=== PATIENT | male | born 1940 | race Hispanic/Latino ===

== ENCOUNTER 2020-08-28 14:33 | Inpatient (IN) | payer OTHER ==
[~2020-08-28 14:33] MED LIST: Calcium Chloride 1 GM/10 ML Abboject SYRINGE ONE; Iopamidol 370 76% 50 ML VIAL FS ONE; Iopamidol-370 76% 500 ML 1 ML ONE; Rocuronium Bromide 10 MG/ML (10ML VIAL) ONE
[2020-08-28] MEDS ORDERED: Midazolam HCl 2 mg/2 ml Vial ONE ×2 (14:56→15:35)
[2020-08-28] MEDS ORDERED: Fentanyl 100 MCG/2 ML VIAL ONE ×4 (14:56→18:04)
[2020-08-28 15:00] LABS: #Eosinphils 0.2 thou/uL (0.0-0.7); #Lymphocytes 2.6 thou/uL (1.20-3.40); #Monocytes 0.9 thou/uL (0.11-0.59); #Neutrophils 16.2 thou/uL (1.40-6.50); %Basophils 0.2 % (0.0-1.0); %Monocytes 4.5 % (0.0-10.0); %Neutrophils 81.3 % (42.0-75.0); Hemoglobin 10.7 g/dL (14.0-18.0); Mean Corpuscular HGB CONC 35.3 g/dL (32.0-36.0); Mean Corpuscular Volume 93.3 fL (78.0-98.0); Mean Platelet Volume 6.6 fL (7.4-10.4); Platelet Count 197 thou/uL (130-400); RBC Distribution Width 12.2 % (11.5-14.5); Red Blood Cell (RBC) Count 3.24 mill/uL (4.70-6.10); White Blood Cell (WBC) Count 19.9 thou/uL (4.8-10.8)
[2020-08-28 15:15] LABS: ALT (SGPT) 60 U/L (8-55); AST (SGOT) 74 U/L (5-34); Alkaline Phosphatase 40 U/L (40-110); Anion Gap 15 mmol/L (10-20); BUN (Urea Nitrogen) 26 mg/dL (8.4-25.7); Bilirubin, Total 0.3 mg/dL (0.2-1.2); Calc. Creatinine Clearance 0 mL/min (70-130); Calcium 7.2 mg/dL (7.8-10.44); Carbon Dioxide 18 mmol/L (23-31); Chloride 105 mmol/L (98-107); Estimated GFR-MDRD 40; Globulin 2.2 g/dL (2.4-3.5); Glucose 268 mg/dL (83-110); Potassium 4.3 mmol/L (3.5-5.1); Protein, Total 5.2 g/dL (5.8-8.1); Sodium 134 mmol/L (136-145)
[2020-08-28 15:20] LABS: INR-International Normal Ratio 1.3; Prothrombin Time 16.3 sec (12.0-14.7)
--- NOTE | 2020-08-28 15:20 | RAD ---
AP view of the pelvis INDICATION: History of fall 20 to 30 ft. onto a concrete; level 1 trauma COMPARISON: None. FINDINGS: Bones: There is a mildly displaced left anterior column acetabular fracture. There is a comminuted fr actures involving the left inferior pubic ramus. There are mildly displaced right obturator ring fractures. There is suspicion for a left zone 1 sacral ala fracture. Both proximal femurs appear inta ct. Hips: Mild osteoarthrosis of both hips SI joints and symphysis pubis: Normal appearing. Intrapelvic contents: Small phleboliths IMPRESSION: 1. Left anterior column acetabular fracture. 2. Comminuted left inferior pubic ramus fracture. 3. Mildly displaced right superior pubic and right inferior pubic ramus fractures 4. Suspected left zone 1 sacral ala fracture.
--- NOTE | 2020-08-28 15:23 | CT ---
Head CT without contrast 08/28/2020: Comparison: None HISTORY: Fall, trauma, pain TECHNIQUE: Axial CT imaging at 5 mm intervals from vertex through skull base without contrast FINDINGS: The imaged paranasal sinuses and mastoid air cells appear well-aerated. No displaced calvar ial fracture. No intracranial hemorrhage, midline shift, or mass effect. No ventricular enlargement. There is mild scalp swelling laterally near the vertex on the right with probable mild s upraorbital and periorbital right-sided soft tissue swelling. IMPRESSION: Soft tissue swelling with no intracranial hemorrhage or displaced calvarial fracture. Results called to Dr. Pruitt at 3:15 PM 08/28/2020
--- NOTE | 2020-08-28 15:23 | CT ---
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 FINDINGS: Spinal alignment: No acute malalignment. Craniocervical junction: Within normal limits. Fracture: None. Vertebral body heights: Maintained. Prevertebral soft tissues:Normal appearing. Cervical spine degenerative change: There is multilevel moderate disc degenerative disease. There is ankylosis of the left facet complexes at C4-5. There is very mild anterior translation of C3 on C4 which is likely degenerative. Lung apices: Clear. IMPRESSION: No acute osseous abnormality. [id number] cervical spondylosis.
--- NOTE | 2020-08-28 15:25 | RAD ---
Portable frontal chest radiograph: 08/28/2020 COMPARISON: 08/28/2020 HISTORY: Reevaluate endotracheal tube FINDINGS: The endotracheal tube has been advanced, projecting over the tracheal air column approximat yue 4 cm proximal to the andrea. There is a right vascular catheter with distal tip overlying the region of the proximal right atrium. A subtle fracture is seen involving the medial aspect of the lef t clavicle. There is questionable soft tissue gas in the axillary region on the left for which CT is advised. No focal consolidation or alveolar edema. IMPRESSION: Lines and tubes as detailed above. Soft tissue gas in the left axillary region. Chest CT advised.
--- NOTE | 2020-08-28 15:30 | RAD ---
AP CHEST: 08/28/20 HISTORY: Fall with injury. Supine and portable exam performed on backboard. Lungs appear aerated and clear. No evidence of pneumothorax. A central line is in place overlying the SVC. Lungs appear clear. Heart and mediastinum unremarkable. The bony thorax appears intact. IMPRESSION: No acute finding. POS: AGW
[2020-08-28] MEDS ORDERED: Boostrix 0.5 ML (Tdap) VIAL ONE (15:35)
[2020-08-28 15:38] LABS: Lactic Acid 4.4 mmol/L (0.5-2.2)
[2020-08-28] MEDS ORDERED: Propofol 1,000 MG/100 ML VIAL IV ONE ×2 (15:43→18:06)
[2020-08-28] MEDS ORDERED: fentaNYL Citrate/PF 2,000 MCG in Sodium Chloride 0.9% 60 ML IV SCH ×2 (15:45→17:15)
--- NOTE | 2020-08-28 15:48 | RAD ---
3 views of the left ankle: 08/28/2020 COMPARISON: None available HISTORY: Injury, trauma, pain FINDINGS: There is soft tissue swelling overlying the lateral malleolus. There is enthesophyte format ion at the origin of the plantar aponeurosis. The talar dome and ankle mortise appear intact with no displaced fracture or evidence of dislocation. IMPRESSION: Lateral soft tissue swelling with no displaced fracture or dislocation seen.
[2020-08-28 15:58] LABS: Actual Bicarbonate (HCO3a) 17.3 mEq/L (22-28); Analyzer IN Cardio ER; Base Excess (BEa) -5.5 mEq/L (-2.0 to +3.0); Calcium, Ionized (arterial) 1.27 mmol/L (1.12-1.30); Carboxyhemoglobin (COHb) 0.3 gm% (0.0-3.0); Hemoglobin (Hb) 10.4 g/dL (14.0-18.0); O2 Tension (PaO2), arterial 267.3 mmHg (> 60.0); Potassium - ABG Lab 3.37 mmol/L (3.70-5.30); pH, Arterial 7.45 (7.35-7.45)
[2020-08-28 16:00] LABS: CO2 Tension 25.6 mmHg (35.0-45.0); Puncture Site A-LINE
--- NOTE | 2020-08-28 16:04 | CT ---
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 FINDINGS: CHEST: Lungs:There is bibasilar airspace consolidation suspicious for aspiration Heart and great vessels:No acute traumatic injury seen. Pleural space: There are few small locules of pneumothorax involving the anterior aspect of the left lung apex. Small amount of hemorrhage involves the left lower hemithorax. Additional findings: Patient is intubated with gastric catheter placement. Gastric catheter is proje cting to the proximal gastric body. There is a right subclavian central venous catheter tip projecting to the cavoatrial junction. There is a right eye O catheter in the right proximal humerus. ABDOMEN: Liver:Normal appearing. Spleen:There is a grade 2 laceration involving the medial inferior pole spleen measuring 1.8 cm. Ther e is a 9 mm contusion involving the medial spleen on image 64 series 2. Pancreas:Normal appearing. Adrenal Glands:There is a 2.4 cm nodule involving the left adrenal gland which is nonspecific and may reflect a small adrenal hematoma or adenoma. Right adrenal gland is normal-appearing. Kidneys:There is a partially ruptured superior pole left renal cyst with surrounding intraluminal hem orrhage and perinephric hemorrhage measuring 4.1 cm. There are multiple simple right renal cysts. Aorta:There are moderate vascular calcifications seen involving the visualized vasculature. Additional findings: No free fluid or free air. PELVIS: Bowel:Normal appearing. Bladder:There is a Nelson catheter within the decompressed bladder. There is extensive paravesicular a nd intrapelvic hematomas. Reproductive structures:There is prostate enlargement. Rectum and perirectal soft tissues:Normal appearing. Additional findings: There is a focus of active extravasation involving the left presacral region, n ear the left sacrotuberous attachment. There is suspicion for a sacrotuberous ligament avulsion injury on image 126 of series 2. OSSEOUS STRUCTURES: There is a nondisplaced left medial shaft clavicular fracture. There is a heavily comminuted open left proximal humeral fracture. There are segmental fractures involving the left sixth, seventh and eighth ribs. There are is a mildly displaced left anterolateral fifth rib fracture. There are mildly displaced pos terior left ninth, 10th and 11th rib fractures. There is a mildly displaced left L1 and left L4 transverse process fracture. There is a transverse type left acetabular fracture with an associated anterior wall component. There is a mildly displaced left pubic body fracture and a comminuted left inferior pubic ramus fract ure. There are mildly displaced right obturator ring fractures. There is a mildly displaced right zone 1 sacral ala fracture. There is a nondisplaced right posterior iliac bone fracture. There is a left sacral tuberous ligament avulsion injury involving the lateral aspect of the left low er lateral sacrum on image 126 of series 2 with adjacent area of active extravasation. There is scattered degenerative and osteoarthritic changes. THORACIC AND LUMBAR SPINE: No acute fracture subluxation is evident. There is a Schmorl's node involving the superior aspect of L1. There is grade 1 anterolisthesis of L3 on L4 and L4-L5 which is likely degenerative in nature. IMPRESSION: 1. Small left hemopneumothorax with flail chest involving the left chest wall ribs sixth through 8. T here are additional left fifth, ninth, 10th, 11th rib fractures. Left L1 and L4 transverse process fractures. 2. Bibasilar aspiration pneumonitis. 3. Grade 2 splenic laceration and grade 1 splenic hematoma 4. Suspicion for a left adrenal hematoma or adenoma. Follow-up imaging is recommended. 5. Partial cyst rupture with some intraluminal and surrounding perinephric hemorrhage involving the s uperior pole left kidney. 6. Transverse type left acetabular fracture with associated mildly displaced anterior wall component. 7. Right obturator ring fractures with left pubic body and comminuted left inferior pubic ramus fract ure. 8. Right zone 1 sacral ala fracture with fracture extension through the right SI joint with a nondisp laced right posterior iliac bone fracture. 9. Left sacrotuberous ligament avulsion injury with a focus of likely venous active extravasation jessica r the avulsion site. 10. Comminuted open left proximal humerus fracture. 11. Nondisplaced medial left clavicular shaft fracture. 12. Findings concerning the CT cervical spine, CT, chest, abdomen and pelvis with thoracolumbar CT re constructions in addition to the follow-up CT cystogram were called to Dr. Shah at 3:45 PM on August 28, 2020.
--- NOTE | 2020-08-28 16:06 | RAD ---
LEFT HUMERUS 2 VIEWS: Date: 08/28/2020 HISTORY: Trauma. FINDINGS: There is a displaced, mildly comminuted fracture involving the proximal humerus. This involves the ne ck and head of the humerus. There is displacement of the humeral head. AC joint is normally aligned. Scapula appears intact. There is a displaced fracture at the elbow which appears to involve the olecranon. Dedicated views of the elbow are recommended. IMPRESSION: 1. Comminuted, displaced fracture proximal humerus with displacement of the humeral head. 2. Fracture at the elbow. There appears to be a displaced fracture of the olecranon. POS: RICK
--- NOTE | 2020-08-28 16:09 | CT ---
EXAM: CT Pelvis WO Con DATE: 08/28/2020 3:24 PM INDICATION: Level 1 trauma with multiple pelvic fracture and concern for bladder injury COMPARISON: CT of the chest, abdomen and pelvis with contrast performed earlier on 08/28/2020 FINDIN cc of contrast was administered in retrograde fashion through the patient's Nelson dwaine ter and repeat CT images were obtained of the lower abdomen and pelvis. There is a linear region of extraluminal extravasation involving the right posterior lateral aspect o f the bladder base consistent with a intraperitoneal bladder rupture. There is moderate enlargement of the prostate gland. There is an intraluminal Nelson catheter with intraluminal hemorrhage seen with in the bladder. Small intraluminal focus of nondependent gas is present within the bladder dome. The area of active venous extravasation seen along the left lateral margin of the lower sacrum likely related to a sacrotuberous ligament avulsion injury demonstrates some interval dispersement of the extravasated contrast. Some residual contrast extravasation remains. This remains suspicious for acti ve venous extravasation. There is some contract dissection into the right femoral open space into the right inguinal region. There is some dissection of contrast into the right inguinal musculature. There is a moderate intrapelvic hemorrhage again seen. The pelvic fractures are better detailed on the previous CT evaluation. IMPRESSION: 1. Intraperitoneal bladder rupture through the right posterior lateral aspect of the bladder base.
[2020-08-28] MEDS ORDERED: Lidocaine 1% (PF) 30 ML VIAL ONE (16:19)
[2020-08-28 16:30] LABS: Magnesium 1.5 mg/dL (1.6-2.6); Phosphorus 4.4 mg/dL (2.3-4.7)
[2020-08-28] MEDS ORDERED: Dextrose 50% Abboject 50 ML SYRINGE SLOW IVP PRN (16:42)
[2020-08-28] MEDS ORDERED: HumaLOG 300 UNITS/3 ML VIAL SC PRN (16:42)
[2020-08-28] MEDS ORDERED: Dextrose 5% in Water 1,000 ML IV PRN (16:42)
[2020-08-28] MEDS ORDERED: Ondansetron PF 4 MG/2 ML Vial IVP PRN (16:42)
[2020-08-28] MEDS ORDERED: Sodium Chloride 0.9% 1,000 ML IV SCH (16:45)
[2020-08-28] MEDS ORDERED: Rib Fracture Protocol IV SCH (16:45)
[2020-08-28 16:48] LABS: CKMB 10.4 ng/mL (0-6.6)
[2020-08-28] MEDS ORDERED: Ventilator Sedation Protocol 1 EACH FS ONE (16:56)
[2020-08-28 17:07] LABS: Hemoglobin 11.3 g/dL (14.0-18.0)
[2020-08-28] MEDS ORDERED: DISCONTINUE PREVIOUS NARCOTIC PAIN MEDICATIONS AND BENZODIAZEPINES FS SCH (17:15)
[2020-08-28] MEDS ORDERED: Fentanyl BOLUS 250 ML IVPB PRN (17:15)
[2020-08-28] MEDS ORDERED: Morphine 2 MG/ML VIAL SLOW IVP PRN (17:15)
[2020-08-28] MEDS ORDERED: Propofol 1,000 MG/100 ML VIAL IV PRN (17:15)
[2020-08-28] MEDS ORDERED: Propofol BOLUS 1,000 MG/100 ML VIAL IV PRN (17:15)
[2020-08-28] MEDS ORDERED: Magnesium Sulfate 4 GM in Sodium Chloride 0.9% 250 ML 250 ML IVPB SCH (17:15)
[2020-08-28] MEDS ORDERED: Lorazepam 2 MG/ML VIAL SLOW IVP PRN (17:15)
[2020-08-28] MEDS ORDERED: Neomycin-Polymyxin 1 ML AMP ONE (17:36)
[2020-08-28 18:35] LABS: Lactic Acid 3.5 mmol/L (0.5-2.2)
[2020-08-28] MEDS ORDERED: Calcium Chloride 1 GM/10 ML Abboject SYRINGE ONE (18:36)
[2020-08-28 18:39] LABS: INR-International Normal Ratio 1.2; PTT 33.2 sec (22.9-36.1); Prothrombin Time 15.8 sec (12.0-14.7)
[2020-08-28 18:40] LABS: #Eosinphils 0.1 thou/uL (0.0-0.7); #Lymphocytes 1.5 thou/uL (1.20-3.40); #Monocytes 0.7 thou/uL (0.11-0.59); #Neutrophils 9.2 thou/uL (1.40-6.50); %Basophils 0.1 % (0.0-1.0); %Eosinophils 0.6 % (0.0-10.0); %Monocytes 5.8 % (0.0-10.0); %Neutrophils 80.6 % (42.0-75.0); Hemoglobin 10.4 g/dL (14.0-18.0); Mean Corpuscular HGB CONC 35.2 g/dL (32.0-36.0); Mean Corpuscular Hemoglobin 31.5 pg (27.0-31.0); Mean Corpuscular Volume 89.5 fL (78.0-98.0); Mean Platelet Volume 7.1 fL (7.4-10.4); Platelet Count 131 thou/uL (130-400); RBC Distribution Width 14.1 % (11.5-14.5); Red Blood Cell (RBC) Count 3.31 mill/uL (4.70-6.10); White Blood Cell (WBC) Count 11.4 thou/uL (4.8-10.8)
[2020-08-28] MEDS ORDERED: Hydrocortisone Sod Succ/PF 100 mg/2 ml Vial ONE (18:41)
[2020-08-28 19:09] LABS: Actual Bicarbonate (HCO3a) 18.1 mEq/L (22-28); Analyzer IN Cardio ER; Base Excess (BEa) -6.8 mEq/L (-2.0 to +3.0); CO2 Tension 33.9 mmHg (35.0-45.0); Calcium, Ionized (arterial) 1.38 mmol/L (1.12-1.30); Carboxyhemoglobin (COHb) 0.2 gm% (0.0-3.0); Hemoglobin (Hb) 10.2 g/dL (14.0-18.0); O2 Tension (PaO2), arterial 247.6 mmHg (> 60.0); Potassium - ABG Lab 3.58 mmol/L (3.70-5.30); pH, Arterial 7.35 (7.35-7.45)
[2020-08-28 19:10] LABS: Puncture Site ART LINE
[2020-08-28 19:15] LABS: ALV-art Gradient 423.025 mmHg (0-20)
[2020-08-28 19:39] LABS: SARS-CoV-2 NAA Rapid Test Not Detected (NotDetected)
[2020-08-28] MEDS ORDERED: Famotidine/PF 20 mg/2ml Vial SLOW IVP SCH (21:00)
--- NOTE | 2020-08-28 23:20 | CON ---
DATE OF CONSULTATION: 08/28/2020 HISTORY OF PRESENT ILLNESS: I was called to the emergency room by Dr. Shah for patient who had a fall from a height. He has multiple long-bone and pelvis fractures. He was hypotensive and is in the process of the massive transfusion protocol. He has received numerous units of packed red blood cells, FFP, platelets, and cryoprecipitate. On his CT angio of his abdomen and pelvis, he has been found to have bleeding into his left pelvis. I have been asked to see him for embolization. PAST MEDICAL HISTORY: Unknown. PAST SURGICAL HISTORY: Unknown. CURRENT MEDICATIONS: Unknown. ALLERGIES: UNKNOWN. PHYSICAL EXAMINATION: VITAL SIGNS: His heart rate was 70 and regular. Blood pressure was 90/60. He is being cared for by the Anesthesia and ER team currently. ASSESSMENT/PLAN: Pelvic bleed for embolization. Job ID: [id number]
--- NOTE | 2020-08-28 23:24 | OP ---
DATE OF PROCEDURE: 08/28/2020 PREOPERATIVE DIAGNOSIS: Pelvic bleed post fall. POSTOPERATIVE DIAGNOSIS: Pelvic bleed post fall. PROCEDURES PERFORMED: 1. Ultrasound-guided right femoral artery access. 2. Abdominal aortogram. 3. Left internal iliac artery angiogram. 4. Left internal iliac artery embolization with [employer] micro coils-#1, 6 x 100; #2, 6 x 100; #3, 6 x 200 placed in the secondary pelvic branches on the left. TOTAL FLUORO TIME: 3.7 minutes. TOTAL CONTRAST: 18 mL. DESCRIPTION OF PROCEDURE: The patient was urgently brought to the supervisor laboratory from the emergency department. The groins were prepped and draped in usual sterile fashion. The patient was under general anesthesia. Using ultrasound guidance, the right common femoral artery was accessed with a micropuncture needle and wire. The micropuncture sheath was then upsized to a 5-Portuguese sheath. Contra catheter was passed into the abdominal aorta. Hand-injected aortogram was performed, delineating the aortic and iliac bifurcations. Contra catheter was guided over the aortic bifurcation and into the internal iliac artery. Hand-injected arteriogram was performed with the tip of the catheter in secondary iliac artery branch. There were two separate areas of bleeding, one on the prostate and one in the left SI joint. The secondary branch feeding the SI joint was accessed. A Renegade catheter was passed down into the artery and a 6 x 100 coil placed. Catheter was brought back above the bifurcation to occlude inflow of both of these branches. A 6 x 100 followed by 6 x 200 coil was placed. Followup angiogram showed an excellent result. Catheters and guidewires were removed. A BoostUp guidewire was placed and ProGlide deployed for closure of the access site. The patient was turned over to Urology team for urethral evaluation. Job ID: [id number]
--- NOTE | 2020-08-29 01:28 | CON ---
DATE OF CONSULTATION: 08/28/2020 REASON FOR CONSULTATION: Pelvic fracture, inability to place Nelson catheter. HISTORY OF PRESENT ILLNESS: Mr. Chester is an 79-year-old gentleman who fell from a height of 30 feet while working. He was brought to the [facility] (ER). Evaluation in the ER included CT scan. This demonstrated pelvic fractures and a humerus fracture. There also appeared to be active bleeding in the pelvis. A Nelson catheter was placed in the emergency room, but did not drain. A cystogram was performed demonstrating some extravasation. On my review of the scan, it appeared that the balloon had been inflated outside the bladder lumen and there was at least partial disruption of the bladder from the prostatic urethra. All history obtained through the chart and none obtained from the patient. PAST MEDICAL HISTORY: Unknown. PAST SURGICAL HISTORY: Unknown. MEDICATIONS: Unknown. ALLERGIES: UNKNOWN. REVIEW OF SYSTEMS: Not obtainable. PHYSICAL EXAMINATION: When I arrived to the emergency room, the patient was being wheeled from the emergency room through Interventional Radiology, and physical exam could not be performed. PROCEDURE: After interventional radiology procedure had been completed for bleeding from the left internal iliac artery, the patient was re-prepped while in Interventional Radiology. The indwelling Nelson catheter was removed, and flexible cystoscopy was performed. The anterior and prostatic urethra appeared normal. Proximal to the prostatic urethra, some clots were noted, but eventually some bladder mucosa was recognized. Cystogram confirmed the flexible cystoscope to be in the bladder. A guidewire was passed through the flexible cystoscope and coiled in the region of the bladder. A 20-[place] [employer] tip catheter was passed over the guidewire. Cystogram was repeated again confirming location in the bladder. The Nelson catheter was hand irrigated for clots, and the balloon was inflated. Again, the catheter was irrigated easily. The repeat cystogram demonstrated the balloon still within the bladder. It does appear that the bladder has been displaced superiorly, likely from pelvic bleeding. IMPRESSION: Disrupted urinary tract from pelvic trauma. Nelson catheter now in bladder lumen. Catheter can be hand irrigated as necessary. He has a Councill tip catheter. In case catheter needs to be performed, this can be performed over a wire. RECOMMENDATIONS: I hand irrigated catheter p.r.n. Do not remove catheter until instructed by urologist. Job ID: [id number]
--- NOTE | 2020-08-29 06:31 | HP ---
HISTORY OF PRESENT ILLNESS: Mr. 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 He may or may not have suffered any loss of consciousness. He was extricated and transported via air ambulance to [facility] in [place], [place]. He was intermittently hypotensive, as a result, level 1 activation was initiated. He received 1 unit of packed red blood cells prior to arrival. On arrival, he is awake and alert, slightly confused. Nevertheless, he moves all extremities and follows commands. He was complaining of severe back pain. Blood pressure was initially low. As a result, massive transfusion protocol was initiated. He had multiple external markers of trauma significant of which included deformed left upper extremity, left chest wall severe tenderness as well as diaphoresis. PAST MEDICAL HISTORY: He admits to hypertension. PAST SURGICAL HISTORY: Denies any previous surgeries. PREHOSPITALIZATION MEDICATIONS: Includes lisinopril. He does not recall the dosages of his medication. FAMILY HISTORY: Unknown, although this is probably noncontributory for this patient's age. ALLERGIES: THE PATIENT DENIES ANY KNOWN DRUG ALLERGIES. REVIEW OF SYSTEMS: Ten-point review of systems could not be obtained due to this patient's waxing mental status. PHYSICAL EXAMINATION: VITAL SIGNS: Initial vital signs includes blood pressure 88/47, pulse 91, respiratory rate 30, temperature 97.1 degrees Fahrenheit, oxygen saturation initially 99% on room air. HEENT: Normocephalic and atraumatic. Pupils are equal, round, and reactive to light and accommodation. NECK: He has no jugular venous distention noted. Cervical spine was immobilized in a C-collar and maintained in neutral position during my examination. CHEST: Chest wall is stable with left-sided chest wall tenderness to palpation. No bony crepitus present. HEART: Reveals regular rate and rhythm. No murmurs or gallops auscultated. LUNGS: Clear to auscultation bilaterally. Breathing with tachypnea, though unlabored. ABDOMEN: Soft, nontender, and nondistended. Bowel sounds are present. EXTREMITIES: He has a markedly deformed left upper extremity with most deformity in the proximal aspect of the left humerus. He has an open laceration on the medial aspect of the proximal humerus corresponding to the bony deformity consistent with a grade 1 open proximal humerus fracture. No active fatty or bloody extravasation. Left clavicle is deformed as well. Otherwise, he has 2+ bilateral radial and pedal pulses. NEUROLOGIC: Reveals no focal neurologic deficits present. LABORATORY STUDIES: Initial laboratory studies include CBC with 19,900 white blood cells, hemoglobin and hematocrit 10.7 and 30.3 respectively. Platelet count is 197,000. Arterial blood gas; pH 7.45. This is post intubation by the way. Arterial blood gas; pH 7.45, pCO2 of 26, PO2 of 267, base excess is -5.5, ionized calcium was 1.27. This is post administration of 2 g of calcium chloride during resuscitation. Metabolic profile includes sodium 134, potassium 4.3, chloride is 105, bicarb is 18, BUN 26, creatinine 1.65, glucose 268, lactic acid 4.4, magnesium 1.5, phosphorus is 4.4, AST and ALT 74 and 60 respectively. Alkaline phosphatase is normal at 40. Troponin I 0.102. CPK is 814. I have personally reviewed all radiographic studies including chest x-ray, which revealed no pneumothorax. Initial chest x-ray revealed a high-riding endotracheal tube, which was adjusted and repeat chest x-ray now reveals the tip of the endotracheal tube approximately 4 cm above the andrea. A brain CT scan is unremarkable for any acute intracranial pathology. CT scan of the cervical spine reveals no fractures or dislocation. CT scan of the chest is remarkable for multiple left-sided rib fractures involving ribs 5 through 8 as well as the posterior aspect of ribs 9 through 11. There is left clavicle fracture, bilateral pulmonary contusions and small apical left pneumothorax. CT scan of the abdomen and pelvis reveals a grade 2 splenic laceration, small left adrenal hematoma, bilateral renal cysts with an apparent rupture of left renal cyst with small amount of hematoma in the left Gerota's fascia. The bony framework of the pelvis reveals bilateral superior and inferior pubic rami fractures, left acetabular fracture as well as left iliac wing fracture. There is right sacroiliac diastasis. CT scan of the thoracic spine is unremarkable for any fractures or dislocations. CT scan of the lumbar spine is pertinent for L1 and L4 left transverse process fractures. I obtained a retrograde cystogram while at the CT scan because we were not able to return a lot of urine and there was a small amount of blood following placement of the Nelson catheter. The CT cystogram reveals placement of the Nelson catheter with the tip in the bladder. However, it appears that the balloon is within the prostatic region. There is contrast extravasation that appears to extend from the bladder neck versus prostatic urethra. Please also note that CT of the pelvis did reveal contrast extravasation in the left presacral area. Given this patient's transient response to resuscitation, active hemorrhage from the pelvic fractures was suspected. IMPRESSION: 1. Status post fall, 30 feet. 2. Bilateral superior and inferior pubic rami fractures. 3. Left acetabular fracture. 4. Left iliac wing fracture. 5. Right sacral iliac fracture. 6. Bladder neck rupture versus prostatic urethral injury. 7. Left clavicle fracture. 8. Grade 1 open left proximal humerus fracture. 9. Multiple rib fractures involving ribs 5 through 8, anterior lateral and posterior 9 through 11. 10. Grade 2 splenic laceration. 11. Left adrenal hematoma. 12. Left apical pneumothorax. 13. Bilateral pulmonary contusions. 14. L1 and L4 left transverse process fractures. 15. Acute blood loss anemia. 16. Acute hypocalcemia. 17. Acute lactic acidosis. 18. Acute posttraumatic respiratory failure. PLAN: 1. Orthopedic surgical consultation with regard to the multiple stated injuries. 2. Consultation with Cardiovascular Surgery for pelvic angiography and possible embolization. 3. Urology consultation with regard to the prostatic injury. 4. We will continue with resuscitation using blood and blood products, minimizing crystalloid usage. 5. Our endpoint would be normalizing serum lactate as well as achieving adequate urinary output. 6. We will continue with full mechanical ventilator support and wean ventilator as the patient becomes more hemodynamically stable. 7. Continue with nonpharmacological VTE prophylaxis. This patient will be high risk for venous thromboembolism. Therefore, if we are not able to initiate chemical VTE prophylaxis within the next 48-72 hours, we will give consideration to placement of IVC filter. Above findings and plan will be discussed with the patient's family once contact was established. Total critical care time is 75 minutes. Job ID: [id number]
--- NOTE | 2020-08-30 04:16 | PQF ---
CLINICAL DOCUMENTATION CLARIFICATION FORM: Dear : Amari Shah Date / Time:08/30/20 Please exercise your independent, professional judgment in responding to the clarification form. Clinical indicators are provided on the bottom of this form for your review Please check appropriate box(s): [ ] Hypovolemic Shock [ x ] Hemorrhagic Shock due to trauma [ ] Shock Unspecified [ ] Other diagnosis [ ] Unable to determine In addition, please specify: Present on Admission (POA): [ x] Yes [ ] No [ ] Unable to determine Physician Signature: Date/Time: For continuity of documentation, please document condition throughout progress notes and discharge summary. Thank You. To be completed by CDI/Coding staff for physician review: Present Clinical Indicators - Signs / Symptoms / Labs Results and Location in Medical Record [X] RBC 3.24, Hgb 10.7, Hct 30.3 Laboratory 08/28 [X] BP 88/47, Pulse 91, Resp 30, Temp 97.1 Vital signs 08/28 [X] Pt fell 30 feet onto concrete fit H&P p1 08/28 Dr Shah [X] Hypotensive H&P p1 08/28 Dr Shah [X] Bleeding on iliac artery Operative report 08/28 Present Risk Factors Results and Location in Medical Record [X] 79 year-old Male H&P p1 08/28 Dr Shha [X] HTN H&P p1 08/28 Dr Shah [X] Multiple fx of Pelvis H&P p1 08/28 Dr Shah [X] Open fx of humeral H&P p1 08/28 Dr Shah [X] Spleenic laceration H&P p1 08/28 Dr Shah [X] Acute blood loss anemia H&P p1 08/28 Dr Shah Present Treatments Results and Location in Medical Record [X] IVF NS 1L JAN 02 [X] Transfusion: PRBC Blood bank 08/28 [X] Transfusion: FFP Blood bank 08/28 [X] Transfusion: Liquid plasma Blood bank 08/28 [X] MV Respiratory panel 08/28 [X] Coil embolization Operative report 08/28 [facility] Signature: Claire Velasquez Phone #: [phone] Date/Time: 08/30/2020 This is a permanent part of the Medical Record [facility]
== END 2020-08-28 20:21 | disposition short-term general hospital (02) | DRG 957 ==
LOC: ERS 14:33 → EDBD 14:33 → ERS 14:43 → EDBD 16:42 → CCU 16:42 → ERHOLD 17:59
PROVIDERS: ADMIT Surgery; ATTEND Surgery
PROC: 04LE4DZ Occlusion of Right Internal Iliac Artery with Intraluminal Device, Percutaneous Endoscopic Approach (ICD-10-PCS; principal; 2020-08-28)
PROC: B4101ZZ Fluoroscopy of Abdominal Aorta using Low Osmolar Contrast (ICD-10-PCS; 2020-08-28)
PROC: B41G1ZZ Fluoroscopy of Left Lower Extremity Arteries using Low Osmolar Contrast (ICD-10-PCS; 2020-08-28)
PROC: 0T9B80Z Drainage of Bladder with Drainage Device, Via Natural or Artificial Opening Endoscopic (ICD-10-PCS; 2020-08-28)
PROC: 30233L1 Transfusion of Nonautologous Fresh Plasma into Peripheral Vein, Percutaneous Approach (ICD-10-PCS; 2020-08-28)
PROC: 30233N1 Transfusion of Nonautologous Red Blood Cells into Peripheral Vein, Percutaneous Approach (ICD-10-PCS; 2020-08-28)
PROC: 30233R1 Transfusion of Nonautologous Platelets into Peripheral Vein, Percutaneous Approach (ICD-10-PCS; 2020-08-28)
PROC: 30233K1 Transfusion of Nonautologous Frozen Plasma into Peripheral Vein, Percutaneous Approach (ICD-10-PCS; 2020-08-28)
PROC: 5A1935Z Respiratory Ventilation, Less than 24 Consecutive Hours (ICD-10-PCS; 2020-08-28)
PROC: 06HY33Z Insertion of Infusion Device into Lower Vein, Percutaneous Approach (ICD-10-PCS; 2020-08-28)
PROC: 0BH17EZ Insertion of Endotracheal Airway into Trachea, Via Natural or Artificial Opening (ICD-10-PCS; 2020-08-28)
DX: S32.592A Other specified fracture of left pubis, initial encounter for closed fracture (principal); J96.00 Acute respiratory failure, unspecified whether with hypoxia or hypercapnia; S42.202B Unspecified fracture of upper end of left humerus, initial encounter for open fracture; S32.402A Unspecified fracture of left acetabulum, initial encounter for closed fracture; S36.031A Moderate laceration of spleen, initial encounter; T79.4XXA Traumatic shock, initial encounter; S22.42XA Multiple fractures of ribs, left side, initial encounter for closed fracture; S32.019A Unspecified fracture of first lumbar vertebra, initial encounter for closed fracture; S32.049A Unspecified fracture of fourth lumbar vertebra, initial encounter for closed fracture; D62 Acute posthemorrhagic anemia; E87.2 Acidosis; S37.812A Contusion of adrenal gland, initial encounter; S27.0XXA Traumatic pneumothorax, initial encounter; S27.322A Contusion of lung, bilateral, initial encounter; S37.39XA Other injury of urethra, initial encounter; S37.29XA Other injury of bladder, initial encounter; Z20.828 Contact with and (suspected) exposure to other viral communicable diseases; S32.591A Other specified fracture of right pubis, initial encounter for closed fracture; S32.392A Other fracture of left ilium, initial encounter for closed fracture; S32.391A Other fracture of right ilium, initial encounter for closed fracture; S42.002A Fracture of unspecified part of left clavicle, initial encounter for closed fracture; E83.51 Hypocalcemia; W17.89XA Other fall from one level to another, initial encounter; I95.9 Hypotension, unspecified; Y92.69 Other specified industrial and construction area as the place of occurrence of the external cause; Z79.899 Other long term (current) drug therapy
CPT/HCPCS: 36247; 36415; 36430; 37244; 70450; 71045; 71260; 72125; 72170; 72192; 74177; 76942; 80053; 82550; 82553; 82805; 83605; 83735; 84100; 84484; 85025; 85384; 85610; 85730; 86850; 86900; 86901; 90715; 94002; C1760; G0390; J0690; J1644; J1720; J2001; J2250; J2270; J2704; J3010; J3475; J7050; P9016; P9035; P9048; P9059; Q9967; U0002